=== PATIENT | male | born 1990 | race Two or more races ===

== ENCOUNTER 2017-10-24 16:26 | Emergency (ER) | payer OTHER ==
[~2017-10-24] VITALS: Ht 190.5 cm; Wt 90.7 kg
[2017-10-24] MEDS ORDERED: diphenhydrAMINE 50 MG CAPSULE PO ONE (17:00)
[2017-10-24] MEDS ORDERED: predniSONE 20 MG TABLET PO ONE (17:00)
[2017-10-24] MEDS ORDERED: predniSONE 20 MG TABLET ONE (17:20)
[2017-10-24] MEDS ORDERED: diphenhydrAMINE 50 MG CAPSULE ONE (17:20)
--- NOTE | 2017-10-24 17:29 | NUR ---
Patient is resting comfortably on gurney with eyes closed, NAD
--- NOTE | 2017-10-24 17:54 | NUR ---
Patient discharged to home in stable conditon. Written and verbal after care instructions given with RX. Patient verbalizes understanding of instructions.
== END 2017-10-24 17:55 | disposition home or self-care (01) ==
LOC: ER 16:26
DX: T78.40XA Allergy, unspecified, initial encounter (principal); L50.0 Allergic urticaria
CPT/HCPCS: A4663; J7512; Q0163